=== PATIENT | male | born 1965 | race Hispanic/Latino ===

== ENCOUNTER 2017-02-18 18:49 | Emergency (ER) | payer MEDICAID ==
[2017-02-18] MEDS ORDERED: XYLOCAINE 1%/ EPI 1:100,000 INFILTRATI ONE ×2 (20:05→20:31)
[2017-02-18 20:43] VITALS: BP 151/81
--- NOTE | 2017-02-18 20:44 | Emergency Department Report ---
ED Lac[facility] Chief Complaint: Extremity Injury, Lower Stated Complaint: BUSTED LEG Time Seen by Provider: 02/18/17 19:58 Occurred When: Today Location: Lower Extremity Severity: mild Tetanus Status: Up to Date (patient is a 51-year-old male with history of peripheral vascular disease presenting with small punctate laceration to the right lower extremity. He reports it started bleeding at 4 PM today and has not hemostasis since. Patient denies any anticoagulant use. Patient has tetanus up-to-date. Otherwise no other complaints.) Laceration Symptoms: Yes Pain, No Foreign Body Sensation, No Numbness, No Weakness ED Review of Systems ROS: Stated complaint: BUSTED LEG Other details as noted in HPI ED Past Medical Hx - Past Medical History Previous Medical History?: Yes Hx Hypertension: Yes Hx Congestive Heart Failure: Yes Hx Diabetes: No Hx Asthma: No Hx COPD: Yes Additional medical history: high cholesterol. DM-controls with diet-no meds - Surgical History Past Surgical History?: Yes Additional Surgical History: hernia repair - Social History Smoking Status: Current Every Day Smoker Substance Use Type: Alcohol - Medications Home Medications: Home Medications Medication Instructions Recorded Confirmed Last Taken Type Albuterol *Only Ed* [Proventil 2.5 mg IH Q4H PRN #30 nebu 02/12/14 02/18/17 Unknown Rx 0.5% NEBS] Atorvastatin (Nf) [Lipitor] 10 mg PO QHS 12/29/15 02/18/17 Unknown History Potassium Chloride [K-Dur] 10 meq PO QDAY 12/29/15 02/18/17 Unknown History Tiotropium [Spiriva] 1 puff IH Q24HRT #1 cap 01/03/16 02/18/17 Unknown Rx Furosemide [Lasix TAB] 40 mg PO QDAY #30 tablet 09/07/16 02/18/17 Unknown Rx Ipratropium/Albuterol Sulfate 1 ampul IH QIDRT #30 ampul.neb 09/07/16 02/18/17 Unknown Rx [Duoneb 0.5 mg-3 mg/3 ml Soln] amLODIPine [Norvasc] 5 mg PO QDAY 02/18/17 02/18/17 Unknown History buPROPion SR [Wellbutrin SR] 150 mg PO BID 02/18/17 02/18/17 Unknown History glipiZIDE [glipiZIDE ER] 5 mg PO QDAY 02/18/17 02/18/17 Unknown History Laceration Physical Exam - Exam General: Vital signs noted. No distress. Alert and acting appropriately. ED Course Vital Signs 02/18/17 02/18/17 02/18/17 19:07 19:11 19:15 Temperature Pulse Rate 95 H Respiratory 25 H Rate Blood Pressure 171/88 Blood Pressure [Left] O2 Sat by Pulse 88 88 97 Oximetry 02/18/17 02/18/17 02/18/17 19:16 19:21 19:25 Temperature 98.2 F Pulse Rate 96 H 94 H 91 H Respiratory 17 16 15 Rate Blood Pressure 171/88 171/88 Blood Pressure 172/93 [Left] O2 Sat by Pulse 96 95 95 Oximetry 02/18/17 02/18/17 02/18/17 19:30 19:35 19:41 Temperature Pulse Rate 90 90 90 Respiratory 18 18 17 Rate Blood Pressure 132/70 132/70 132/70 Blood Pressure [Left] O2 Sat by Pulse 96 96 95 Oximetry 02/18/17 19:45 Temperature Pulse Rate 90 Respiratory 16 Rate Blood Pressure 148/77 Blood Pressure [Left] O2 Sat by Pulse 95 Oximetry - Laceration /Wound Repair Right Lower Distal Leg Wound Location: lower extremity Wound's Depth, Shape: superficial Wound Explored: clean Irrigated w/ Saline (ccs): 50 Betadine Prep?: No Anesthesia: Lidocaine w/ Epi Wound Debrided: minimal Wound Repaired With: sutures Suture Size/Type: 4:0, proline Number of Sutures: 1 Layer Closure?: No Sterile Dressing Applied?: Yes Progress: Punctate 2mm wound, hemostasis with 1 suture ED Medical Decision Making - Medical Decision Making Wound care instructions given to patient. Critical care attestation.: If time is entered above; I have spent that time in minutes in the direct care of this critically ill patient, excluding procedure time. ED Disposition Clinical Impression: Laceration Disposition: DISCHARGED TO HOME OR SELFCARE Is pt being admited?: No Condition: Stable Instructions: Suture Care (ED), Laceration (ED) Referrals: PRIMARY CARE, [Primary Care Provider] - 3-5 Days
[2017-02-18] MEDS ORDERED: TRIPLE ANTIBIOTIC TP ONE (20:48)
== END 2017-02-18 20:55 | disposition home or self-care (01) ==
LOC: ED 18:49
DX: S81.831A Puncture wound without foreign body, right lower leg, initial encounter (principal); I10 Essential (primary) hypertension; I50.9 Heart failure, unspecified; J44.9 Chronic obstructive pulmonary disease, unspecified; F17.200 Nicotine dependence, unspecified, uncomplicated; X58.XXXA Exposure to other specified factors, initial encounter; Y93.9 Activity, unspecified; Y92.9 Unspecified place or not applicable; Y99.9 Unspecified external cause status
CPT/HCPCS: 82962; 99283; A6250